=== PATIENT | male | born 1950 | race Caucasian/White ===

== ENCOUNTER → 2024-04-26 | Outpatient (CLI) | payer MEDICARE, SELFPAY ==
[2024-04-26 09:31] LABS: Basophils # (Auto) 0.1 Thou/mm3 (0.0-0.2); Basophils % (Auto) 1 % (0-2.5); Eosinophils # (Auto) 0.2 Thou/mm3 (0.0-0.5); Eosinophils % (Auto) 3 % (0-10); Hematocrit 42.5 % (41.0-53.0); Hemoglobin 14.7 g/dL (13.5-16.0); Immature Granulocytes % (Auto) 0 % (0-0); Immature Granulocytes Auto 0.01 Thou/mm3 (0.00-0.00); Lymphocytes # (Auto) 1.8 Thou/mm3 (1.0-4.8); Lymphocytes % (Auto) 26 % (10-50); Mean Corpuscular HGB Conc 34.6 g/dl (31.0-37.0); Mean Corpuscular Hemoglobin 28.6 pg (25.0-35.0); Mean Corpuscular Volume 83 fL (80-100); Monocytes # (Auto) 0.6 Thou/mm3 (0.0-0.8); Monocytes % (Auto) 9 % (0-12); Neutrophils # (Auto) 4.2 Thou/mm3 (1.8-7.7); Neutrophils % (Auto) 61 % (37-80); Nucleated Red Blood Cell % 0 /100 WBC (0); Platelet Count 213 Thou/mm3 (140-440); RDW Standard Deviation 41.3 fL (35.1-43.9); Red Blood Count 5.14 Miln/mm3 (4.50-5.90); White Blood Count 6.9 Thou/mm3 (3.8-10.6)
[2024-04-26 09:51] LABS: Glucose Estimated Average 186 mg/dL (80-131); Hemoglobin A1C 8.1 % Hgb (4.8-6.0)
[2024-04-26 09:59] LABS: Collection Type, Urine Clean Catch; Squamous Epithelial Cell,Urine 0 /hpf (0-5)
[2024-04-26 10:01] LABS: Alanine Aminotransferase 35 U/L (10-49); Albumin, Serum 4.4 gm/dL (3.4-4.8); Albumin/Globulin Ratio 1.6 (1.2-2.2); Alkaline Phosphatase 84 U/L (46-116); Anion Gap 7 (7-16); Aspartate Amino Transferase 23 U/L (0-34); BUN/Creatinine Ratio 22 Ratio (12-20); Bilirubin,Total 1.2 mg/dL (0.3-1.2); Blood Urea Nitrogen 20 mg/dL (9-23); Calcium 9.4 mg/dL (8.3-10.6); Calcium (Corrected) 9.4 mg/dL (8.5-10.1); Carbon Dioxide 26.4 mMol/L (20.0-31.0); Chloride 109 mMol/L (98-107); Cholesterol 113 mg/dL (132-200); Creatinine (Component) 0.9 mg/dL (0.6-1.3); Globulin 2.7 gm/dL (2.3-3.5); Glucose 169 mg/dL (74-106); HDL Cholesterol 28 mg/dL (40-60); LDL Cholesterol,Calculated 63 mg/dL (0-130); Osmolality,Calculated 289 (275-295); Potassium 4.2 mMol/L (3.4-5.1); Sodium 142 mMol/L (136-145); Total Protein 7.1 gm/dL (5.7-8.2); Triglycerides 111 mg/dL (30-150); Uric Acid 4.9 mg/dL (3.7-9.2); eGFR > 60 See Note
[2024-04-26 10:17] LABS: Thyroid Stimulating Hormone 2.76 uIU/mL (0.55-4.78)
[2024-04-26 10:40] LABS: Bilirubin,Urine Negative (Negative); Blood,Urine Negative (Negative); Clarity,Urine Clear (Clear/Hazy); Color,Urine Yellow (Lt Yel-Yel); Glucose, Urine 3+ (Negative); Ketones,Urine Negative (Negative); Leukocyte Esterase,Urine Negative (Negative); Nitrite,Urine Negative (Negative); PH,Urine 5.5 (5.0-7.0); Protein,Urine Trace (Neg - Trace); RBC,Urine 2 /hpf (0-3); Urobilinogen,Urine Negative mg/dL (0.0-1.0); WBC,Urine < 1 /hpf (0-5)
[2024-04-26 10:53] LABS: Creatinine MALB Rnd Ur 200 mg/dL (30-125); Microalbumin, Random Urine < 3 mg/L (0-300)
[2024-04-26 17:44] LABS: Vitamin B12 827 pg/mL (211-911)
[2024-04-26 20:29] LABS: Prostate Specific Antigen 2.13 ng/mL (0-4.00)
[2024-04-27 12:13] LABS: Vitamin D 25 Hydroxy Total 32.4 ng/mL (7.3-40.2)
== END | disposition home or self-care (01) ==
LOC: COPL 08:44
PROVIDERS: PCP Internal Medicine; Referring Provider Internal Medicine; Visit Provider Internal Medicine
DX: Z00.00 Encounter for general adult medical examination without abnormal findings (principal); E11.9 Type 2 diabetes mellitus without complications; I10 Essential (primary) hypertension; E78.5 Hyperlipidemia, unspecified
CPT/HCPCS: 36415; 80053; 80061; 81001; 82043; 82306; 82570; 82607; 83036; 84153; 84443; 84550; 85025

== ENCOUNTER → 2024-08-16 | Outpatient (CLI) | payer MEDICARE, SELFPAY ==
--- NOTE | 2024-08-16 | XR_ITS ---
EXAMINATION: Ankle, left 3 views . Technique: Ankle AP, oblique, lateral 3 views Date and time of exam: August 16, 2024 0825 hours INDICATIONS: Patient fell August 07, 2024 with injury to the ankle, ankle pain. FINDINGS: No fracture or dislocation Prominent ossification in the plantar fascia IMPRESSION: No acute fracture
== END | disposition home or self-care (01) ==
LOC: CDIM 07:59
PROVIDERS: PCP Internal Medicine; Referring Provider Internal Medicine; Visit Provider Internal Medicine
DX: S99.912A Unspecified injury of left ankle, initial encounter (principal); W19.XXXA Unspecified fall, initial encounter
CPT/HCPCS: 73610

== ENCOUNTER 2024-10-09 10:05 | Emergency (ER) | payer MEDICARE, SELFPAY ==
[2024-10-09 10:05] VITALS: BMI 33.0
[2024-10-09 10:58] VITALS: BP 154/91; PULSE 103; RESP 18; TEMP 36.6; O2SAT 96
--- NOTE | 2024-10-09 11:09 | XR_ITS ---
Examination: Abdomen AP single view Technique: AP portable supine abdomen, single view Exam date and time: October 09, 2024 1124 hrs. Indications: Abdominal constipation today Findings: Moderate to large amount of stool throughout the colon. No obstruction. No free air Impression: Moderate to large amounts of stool throughout the colon
--- NOTE | 2024-10-09 11:09 | PD.EDRME ---
Rapid Medical Screening Exam RME Arrival date/time: 10/09/24 10:05 This is a 73-year-old male that comes in with complaints of constipation for the last 3 days. Patient states been complaining of a lot of abdominal pain yesterday had a lot of lower left abdominal pain. Patient also has a history of kidney stones and some trouble urinating that has been a chronic issue. I have greeted and performed a focused initial assessment of this patient. Initial appropriate labs ordered at this time. A comprehensive ED assessment and evaluation of the patient and analysis of all test and completion of medical decision making process will be conducted by additional ED provider. Chief Complaint: Abdominal Pain Time Seen by Provider: 10/09/24 10:08 Vital signs: Vital Signs Temperature 97.8 F 10/09/24 10:58 Pulse Rate 103 H 10/09/24 10:58 Respiratory Rate 18 10/09/24 10:58 Blood Pressure 154/91 H 10/09/24 10:58 Pulse Oximetry (%) 96 10/09/24 10:58 Oxygen Delivery Method Room Air 10/09/24 10:58
[2024-10-09 11:53] LABS: Basophils # (Auto) 0.1 Thou/mm3 (0.0-0.2); Basophils % (Auto) 0 % (0-2.5); Eosinophils % (Auto) 0 % (0-10); Hematocrit 47.5 % (41.0-53.0); Hemoglobin 16.6 g/dL (13.5-16.0); Immature Granulocytes % (Auto) 0 % (0-0); Immature Granulocytes Auto 0.03 Thou/mm3 (0.00-0.00); Lymphocytes # (Auto) 1.2 Thou/mm3 (1.0-4.8); Lymphocytes % (Auto) 10 % (10-50); Mean Corpuscular HGB Conc 34.9 g/dl (31.0-37.0); Mean Corpuscular Hemoglobin 28.7 pg (25.0-35.0); Mean Corpuscular Volume 82 fL (80-100); Monocytes # (Auto) 0.7 Thou/mm3 (0.0-0.8); Monocytes % (Auto) 6 % (0-12); Neutrophils % (Auto) 83 % (37-80); Nucleated Red Blood Cell % 0 /100 WBC (0); Platelet Count 223 Thou/mm3 (140-440); RDW Standard Deviation 38.8 fL (35.1-43.9); Red Blood Count 5.79 Miln/mm3 (4.50-5.90)
[2024-10-09 12:03] LABS: Alanine Aminotransferase 34 U/L (10-49); Albumin, Serum 4.3 gm/dL (3.4-4.8); Albumin/Globulin Ratio 1.5 (1.2-2.2); Alkaline Phosphatase 89 U/L (46-116); Anion Gap 9 (7-16); Aspartate Amino Transferase 26 U/L (0-34); BUN/Creatinine Ratio 13 Ratio (12-20); Bilirubin,Total 1.3 mg/dL (0.3-1.2); Blood Urea Nitrogen 15 mg/dL (9-23); Calcium 9.2 mg/dL (8.3-10.6); Calcium (Corrected) 9.2 mg/dL (8.5-10.1); Carbon Dioxide 26.2 mMol/L (20.0-31.0); Chloride 105 mMol/L (98-107); Creatinine (Component) 1.2 mg/dL (0.6-1.3); Estimated Creatinine Clearance 80.7 mL/min (>60); Globulin 2.9 gm/dL (2.3-3.5); Glucose 295 mg/dL (74-106); Lipase 31 U/L (12-53); Osmolality,Calculated 291 (275-295); Potassium 4.8 mMol/L (3.4-5.1); Sodium 140 mMol/L (136-145); Total Protein 7.2 gm/dL (5.7-8.2); eGFR > 60 See Note
[2024-10-09 12:09] LABS: Collection Type, Urine Voided
[2024-10-09 12:39] LABS: Bilirubin,Urine Negative (Negative); Blood,Urine 2+ (Negative); Color,Urine Lt-Yellow (Lt Yel-Yel); Culture Indicated,Urine Not Indicated; Glucose, Urine 4+ (Negative); Ketones,Urine Negative (Negative); Leukocyte Esterase,Urine Negative (Negative); Nitrite,Urine Negative (Negative); PH,Urine 5.5 (5.0-7.0); Protein,Urine Trace (Neg - Trace); RBC,Urine 47 /hpf (0-3); Specific Gravity,Urine 1.032 (1.001-1.035); Squamous Epithelial Cell,Urine 1 /hpf (0-5); Transitional Epi Cells,Urine < 1 /hpf (0-5); Urobilinogen,Urine Negative mg/dL (0.0-1.0); WBC,Urine < 1 /hpf (0-5)
[2024-10-09 12:40] LABS: Clarity,Urine Hazy (Clear/Hazy)
[2024-10-09 13:37] VITALS: BP 167/119; PULSE 90; RESP 15; O2SAT 97
--- NOTE | 2024-10-09 13:45 | XR_ITS ---
Examination: CT abdomen and pelvis without contrast. Coronal 3-D reconstructions. Sagittal 2-D reconstructions. Date and time of exam:October 09, 2024, 1501 hrs. Comparison October 25, 2006 Indications: Onset abdominal pain distention hematuria beginning 3 days ago CTDI: vol (mGy): 11.2 DLP: (mGycm): 825 Technique: Axial images of the abdomen have been obtained, 3 mm slice thickness Intravenous contrast material has not been administered. Low dose protocols were performed. One or more of the following dose reduction techniques were used; automated exposure control, adjustment of the mA and/or KV according to patient size, use of iterative reconstruction technique. Findings: Diffuse fatty infiltration throughout the liver with left lobe liver cyst Liver is mildly irregular in contour No gallstones Splenic calcifications Hypodense mass body of the pancreas axial image 75, measuring 27 mm 2 mm left renal calculus in the midpole and 4 mm calculus in the lower pole, minimal hydronephrosis secondary to 2 mm distal left ureteral calculus image 221 No bladder calculi Moderate prostatomegaly Normal appendix No bowel obstruction Impression: Suspect primary hepatocellular disease 27 mm hypodense mass body of the pancreas, recommend elective MRI abdomen pancreas follow-up pre and postcontrast Left renal calculi Minimal left hydronephrosis secondary to 2 mm distal left ureteral calculus
--- NOTE | 2024-10-09 13:46 | PD.EDABDPN ---
ED Abdominal Pain RME/HPI General Chief Complaint: Abdominal Pain Stated complaint: CONSTIPATED X3 DAYS Time seen by provider: 10/09/24 10:08 Arrival date/time: 10/09/24 10:05 Limitations: no limitations RME / HPI RME / HPI narrative: 10/09/24 10:05 This is a 73-year-old male that comes in with complaints of constipation for the last 3 days. Patient states been complaining of a lot of abdominal pain yesterday had a lot of lower left abdominal pain. Patient also has a history of kidney stones and some trouble urinating that has been a chronic issue. I have greeted and performed a focused initial assessment of this patient. Initial appropriate labs ordered at this time. A comprehensive ED assessment and evaluation of the patient and analysis of all test and completion of medical decision making process will be conducted by additional ED provider. 13:45 73-year-old male is here today of a 3-day history of abdominal pain without bowel movements. He noted some increased abdominal distention. He has nausea but no vomiting. He denies any fevers or chills. He does have a left-sided abdominal pain without dysuria or urinary frequency. He says he has a remote history of ureterolithiasis. He has a history of diabetes. Related Data Home Medications ?Medication ?Instructions ?Recorded ?Confirmed amlodipine 10 mg tablet 10 mg PO DAILY High Blood Pressure 11/18/18 11/18/18 benazepril 20 mg tablet 20 mg PO QDAY 11/18/18 11/18/18 glipizide 5 mg-metformin 500 mg 1 tab PO BID 11/18/18 11/18/18 tablet Previous Rx's ?Medication ?Instructions ?Recorded insulin glargine 100 unit/mL 20 unit (0.2 mL) subcut QDAY #1 mL 11/20/18 subcutaneous solution (Lantus U-100 Insulin) ibuprofen 600 mg tablet 600 mg PO Q8H PRN pain #20 tabs 10/09/24 tamsulosin 0.4 mg capsule (Flomax) 0.4 mg PO QDAY #30 caps 10/09/24 Allergies Allergy/AdvReac Type Severity Reaction Status Date / Time No Known Allergies Allergy Unknown Uncoded 10/09/24 10:07 Review of Systems Review of Systems Systems Reviewed: All systems reviewed, normal except as documented ED Exam General Limitations: Present no limitations General appearance: Present alert and in no apparent distress Head Head exam: Present atraumatic Eye Eye exam: Present normal appearance, PERRL and EOMI ENT ENT exam: Present normal exam, normal oropharynx and mucous membranes moist Neck Neck exam: Present normal inspection, full ROM and trachea midline Chest Chest inspection: Present normal inspection and symmetric chest wall rise Respiratory Respiratory exam: Present normal lung sounds bilaterally Cardiovascular Cardiovascular exam: Present regular rate, normal rhythm and normal heart sounds Abdominal Exam Abdominal exam: Present soft, distention, tenderness, normal bowel sounds and other (There is moderate tympany along the left quadrants) Extremities Exam Extremities exam: Present normal inspection and full ROM Back Exam Back exam: Present normal inspection and full ROM Neurological Exam Neurological exam: Present alert, oriented X3 and CN II-XII intact Psychiatric Psychiatric exam: Present normal affect and normal mood Skin Skin exam: Present warm, dry, intact and normal color Course Quality Measures none Orders Category Date Time Status CT abdomen pelvis wo con Stat Exams 10/09/24 13:45 Completed KUB [XR abdomen 1V] Stat Exams 10/09/24 11:09 Completed CBC Stat Lab 10/09/24 11:32 Completed Comprehensive Metabolic Panel Stat Lab 10/09/24 11:32 Completed Lipase Stat Lab 10/09/24 11:32 Completed Urinalysis, C/S if Indicated Stat Lab 10/09/24 11:53 Completed Ketorolac Inj [Toradol Inj] Med 10/09/24 16:04 Discontinued 15 mg IVP X1 ONE Magnesium Citrate Liqd [Citrate of Magnesia Liqd] Med 10/09/24 13:45 Discontinued 300 ml PO X1 ONE Morphine Inj Med 10/09/24 13:45 Discontinued 4 mg IVP X1 ONE Morphine Inj Med 10/09/24 15:46 Discontinued 4 mg IVP X1 ONE Ondansetron Inj [Zofran Inj] Med 10/09/24 13:45 Discontinued 4 mg IVP X1 ONE Sodium Chloride 0.9% 1000 ml [Ns] 1,000 ml Med 10/09/24 13:45 Discontinued IV 999 mls/hr Tamsulosin HCl [Flomax] Med 10/09/24 16:04 Discontinued 0.4 mg PO X1 ONE cloNIDine HCL [Catapres] Med 10/09/24 16:04 Discontinued 0.1 mg PO X1 ONE hydrALAZINE INJ [Apresoline Inj] Med 10/09/24 16:04 Discontinued 5 mg IVP X1 ONE Vital Signs Vital signs: Vital Signs Temperature 97.8 F 10/09/24 10:58 Pulse Rate 103 H 10/09/24 10:58 Respiratory Rate 18 10/09/24 10:58 Blood Pressure 154/91 H 10/09/24 10:58 Pulse Oximetry (%) 96 10/09/24 10:58 Oxygen Delivery Method Room Air 10/09/24 10:58 Abdominal Pain MDM MDM Narrative MDM Narrative:: 73-year-old male is here today with right-sided abdominal pain nausea, no vomiting. Has not had a bowel movement in 3 days. Denies any dysuria or urinary frequency. Has no fevers or chills. He has a history of hypertension and diabetes. He has remote history of nephrolithiasis. Workup was initiated and patient was found to have microscopic hematuria. He has a mild leukocytosis at 12,000, H&H are stable. His glucose is elevated at 295, his bicarb is 26.2. Creatinine is 1.2. Patient CT of the abdomen pelvis revealed a 2 mm, stone in the left mid ureter. There are also hypodensities in the pancreas that were discussed with the patient. Patient's blood pressure is elevated here and we treated this with antihypertensive. His pain was controlled with morphine, Toradol, and he was later given a dose of Flomax. Case discussed with attending physicain. Patient's results were discussed in detail. We discussed therapies for his urethral lithiasis and the need to follow-up close with his primary doctor regarding his pancreatic concerns. Patient verbalized understanding and agreement to plan. Patient data External records reviewed:: Other (specify) Clinical information provided by:: patient and family Social determinants that could affect healthcare access:: none Patient has the following chronic illnesses:: Hypertension, diabetes How is presenting disease/condition affected by chronic disease/condition?: exacerbated by Evaluation data The following diagnostics were reviewed and interpreted by me:: lab results and radiology exam(s) Lab and/or radiology exams considered but not ordered:: MRI abdomen Interpretation Summary: Ureterolithiasis, pancreatic mass Medications / Prescriptions Medications or Prescriptions considered but not ordered:: n/a Medication administrations:: Medication Administration History Discontinued Medications Clonidine (Clonidine Hcl 0.1 Mg Tablet) 0.1 mg PO X1 ONE Stop: 10/09/24 16:05 Last Admin: 10/09/24 16:19 Dose: 0.1 mg Documented By: EF Hydralazine HCl (Hydralazine Inj 20 Mg/Ml Vial) 5 mg IVP X1 ONE Stop: 10/09/24 16:05 Last Admin: 10/09/24 16:19 Dose: 5 mg Documented By: EF Sodium Chloride (Ns) 1,000 mls @ 999 mls/hr IV .Q1H1M ONE Stop: 10/09/24 14:45 Last Infusion: 10/09/24 15:03 Dose: Infused Documented By: Admin: 10/09/24 14:02 Dose: 999 mls/hr Documented By: EF Ketorolac Tromethamine (Ketorolac Inj 30 Mg/Ml Vial) 15 mg IVP X1 ONE Stop: 10/09/24 16:05 Last Admin: 10/09/24 16:19 Dose: 15 mg Documented By: EF Magnesium Citrate (Magnesium Citrate 300 Ml Btl) 300 ml PO X1 ONE Stop: 10/09/24 13:46 Last Admin: 10/09/24 14:06 Dose: 300 ml Documented By: EF Morphine Sulfate (Morphine Sulf Inj 10 Mg/Ml Vial) 4 mg IVP X1 ONE Stop: 10/09/24 13:46 Last Admin: 10/09/24 14:03 Dose: 4 mg Documented By: EF Morphine Sulfate (Morphine Sulf Inj 10 Mg/Ml Vial) 4 mg IVP X1 ONE Stop: 10/09/24 15:47 Last Admin: 10/09/24 16:00 Dose: 4 mg Documented By: EF Ondansetron HCl (Ondansetron Inj 2 Mg/Ml Inj 2 Ml) 4 mg IVP X1 ONE; Protocol Stop: 10/09/24 13:46 Last Admin: 10/09/24 14:02 Dose: 4 mg Documented By: EF Tamsulosin HCl (Tamsulosin Hcl 0.4 Mg Capsule) 0.4 mg PO X1 ONE Stop: 10/09/24 16:05 Last Admin: 10/09/24 16:19 Dose: 0.4 mg Documented By: EF See above Consultations Consultation(s) initiated? (list below): No Diagnosis Differential diagnosis abdominal pain: abdominal pain, acute appendicitis, calculus of kidney and constipation Most likely diagnosis given after review of the tests above:: Urethral lithiasis, pancreatic mass Admission Indicated Admission indicated?: indicated Admission Request Was there a request for admission?: No Disposition Plan Disposition Plan: Discharge Discharge Attestation Discharge Attestation: The patient and all family members were given an opportunity to ask questions and understood the discharge instructions. Discharge instructions specifically effects, indications for sooner follow up or return to the emergency department, and the expected course of current diagnosis. Patient condition: Stable Discharge Plan Plan Patient Disposition: HOME (Self Care) Patient condition on transfer: Stable Prescriptions/Referrals Prescriptions/Med Rec: New tamsulosin [Flomax] 0.4 mg capsule 0.4 mg PO QDAY Qty: 30 0RF ibuprofen 600 mg tablet 600 mg PO Q8H PRN (Reason: pain) Qty: 20 0RF No Action amlodipine 10 mg Tablet 10 mg PO DAILY benazepril 20 mg Tablet 20 mg PO QDAY glipizide-metformin 5-500 mg Tablet 1 tab PO BID Lantus U-100 Insulin 100 unit/mL Solution 20 unit subcut QDAY Qty: 1 0RF Referrals: Ryan Webster MD [Primary Care Provider] - In 1 week Problem List Clinical Impression: Diabetes, Ureterolithiasis, Mass of pancreas Patient/Caregiver Discharge Instructions Education Materials: ED Diabetes- Overview, ED Kidney Stone w/ Colic Additional Instructions: Use the provided medication as prescribed. Increase oral hydration. Starting [id number] stool softener. It is very important that you follow-up with your primary doctor regarding your CT results that are concerning for pancreatic mass. Print Language: Vincentian Stand Alone Forms: [employer] Award Info., Patient Portal Info Letter
[2024-10-09] MEDS: ONDANSETRON INJ 2 MG/ML INJ 2 ML 4 MG IVP (14:02)
[2024-10-09] MEDS: SODIUM CHLORIDE 0.9% 1000 ML 1,000 ML 999 ML IV (14:02)
[2024-10-09] MEDS: MORPHINE SULF INJ 10 MG/ML VIAL 4 MG IVP ×2 (14:03→16:00)
[2024-10-09] MEDS: MAGNESIUM CITRATE 300 ML BTL PO (14:06)
[2024-10-09 15:07] VITALS: BP 178/119; PULSE 105; RESP 20; O2SAT 96
[2024-10-09 16:19] VITALS: BP 203/130; PULSE 109; PULSE 111
[2024-10-09] MEDS: cloNIDine HCL 0.1 MG TABLET PO (16:19)
[2024-10-09] MEDS: hydrALAZINE INJ 20 MG/ML VIAL 5 MG IVP (16:19)
[2024-10-09] MEDS: KETOROLAC INJ 30 MG/ML VIAL 15 MG IVP (16:19)
[2024-10-09] MEDS: TAMSULOSIN HCL 0.4 MG CAPSULE PO (16:19)
[2024-10-09 18:00] VITALS: BP 172/103; PULSE 98; RESP 15; O2SAT 96
== END 2024-10-09 18:00 | disposition home or self-care (01) ==
PROVIDERS: Nurse Practitioner Family; Emergency Provider Family Medicine; PCP Internal Medicine
DX: N13.2 Hydronephrosis with renal and ureteral calculous obstruction (principal); K59.00 Constipation, unspecified; E11.9 Type 2 diabetes mellitus without complications; K86.9 Disease of pancreas, unspecified
CPT/HCPCS: 36415; 74018; 74176; 80053; 81001; 83690; 85025; 96361; 96374; 96375; 96376; 99284; J0360; J1885; J2270; J2405; J7030; A9270

== ENCOUNTER → 2024-12-29 | Outpatient (CLI) | payer MEDICARE, SELFPAY ==
[2024-12-29 08:50] LABS: Albumin, Serum 3.9 gm/dL (3.4-4.8); Anion Gap 8 (7-16); BUN/Creatinine Ratio 19 Ratio (12-20); Blood Urea Nitrogen 19 mg/dL (9-23); Calcium 9.2 mg/dL (8.3-10.6); Calcium (Corrected) 9.3 mg/dL (8.5-10.1); Carbon Dioxide 26.6 mMol/L (20.0-31.0); Chloride 109 mMol/L (98-107); Creatinine (Component) 1.0 mg/dL (0.6-1.3); Glucose 158 mg/dL (74-106); Osmolality,Calculated 292 (275-295); Phosphorous 3.2 mg/dL (2.4-5.1); Potassium 4.8 mMol/L (3.4-5.1); Sodium 144 mMol/L (136-145); eGFR > 60 See Note
== END | disposition home or self-care (01) ==
LOC: COPL 07:13
PROVIDERS: PCP Internal Medicine; Referring Provider Internal Medicine; Visit Provider Internal Medicine
DX: N17.0 Acute kidney failure with tubular necrosis (principal)
CPT/HCPCS: 36415; 80069

== ENCOUNTER → 2025-01-02 | Outpatient (CLI) | payer MEDICARE, SELFPAY ==
--- NOTE | 2025-01-02 14:30 | XR_ITS ---
Examination: MRI abdomen with intravenous contrast. MRI abdomen without intravenous contrast. Date and time of exam: January 02, 2025 1548 hours INDICATIONS: 27 mm hypodense mass body the pancreas on CT abdomen pelvis October 09, 2024 Technique: Multiple axial, sagittal and coronal sections of the abdomen obtained. Transverse images, TR 6020, TE 107. T1 weighted transverse images, TR 582, TE 9.5. T2-weighted sagittal images, TR 4000, TE 105. T2-weighted sagittal images, TR 4000, TE 5. Coronal images, TR 4210, TE 107. Axial and coronal images are obtained post 20 cc intravenous injection, gadolinium. Findings: 24 mm left lobe liver cyst No gallstones Normal common hepatic common bile duct 23 mm pancreatic mass with increased signal on the T2-weighted images precontrast Postcontrast images demonstrate no enhancement of this cystic mass Normal adrenal glands No hydronephrosis No ascites Multiple benign left renal cysts, the largest 39 mm IMPRESSION: 23 mm pancreatic cyst which does not demonstrate enhancement Recommend 6 month follow-up pancreatic ultrasound
== END | disposition home or self-care (01) ==
LOC: SMRI 13:59
PROVIDERS: PCP Internal Medicine; Referring Provider Internal Medicine; Visit Provider Internal Medicine
DX: K86.2 Cyst of pancreas (principal)
CPT/HCPCS: 74183; A9577